=== PATIENT | female | born 1960 | race Caucasian/White ===

== ENCOUNTER 2024-12-20 18:18 | Outpatient (CLI) | payer OTHER, SELFPAY | END 2024-12-20 18:19 | disposition home or self-care (01) | LOC: AMB 12-23 13:34 | PROVIDERS: Visit Provider Emergency Medicine | DX: M25.572 Pain in left ankle and joints of left foot (principal); F10.129 Alcohol abuse with intoxication, unspecified | CPT/HCPCS: A0425; A0427 ==

== ENCOUNTER 2024-12-20 18:44 | Emergency (ER) | payer OTHER, SELFPAY ==
[2024-12-20 18:52] VITALS: BP 138/78; PULSE 66; RESP 18; TEMP 37.1; O2SAT 99
--- NOTE | 2024-12-20 19:21 | CRLHL7_ITS ---
For Patients: As a result of the Century Cures Act, medical imaging exams and procedure reports are released immediately into your electronic medical record. You may view this report before your referring provider. If you have questions, please contact your health care provider. INDICATION: Left-sided foot drop. TECHNIQUE: CT of the head without contrast. Coronal and sagittal reformats are included. COMPARISON: None. FINDINGS: No CT evidence of acute cortical infarct. No loss of huffman white matter differentiation. No hyperdense vessels to suggest intracranial thrombus. No acute intracranial hemorrhage. No mass effect or midline shift. No hydrocephalus or extra-axial collections. White matter is within normal limits for age. No acute osseous abnormalities. Mastoid air cells and paranasal sinuses are clear. Normal soft tissues. IMPRESSION: IMPRESSION:1. No CT evidence of acute cortical infarct. No acute intracranial hemorrhage. No other acute intracranial findings. Please note that all CT scans at this facility use dose modulation, iterative reconstruction, and/or weight-based dosing when appropriate to reduce radiation dose to as low as reasonably achievable. Dictated by Conner Perrin MD @ 12/20/2024 8:11:44 PM (Electronically Signed)
--- NOTE | 2024-12-20 19:21 | CRLHL7_ITS ---
For Patients: As a result of the Century Cures Act, medical imaging exams and procedure reports are released immediately into your electronic medical record. You may view this report before your referring provider. If you have questions, please contact your health care provider. DATE: 12/20/2024 CLINICAL HISTORY: Patient with focal neurological deficits. TECHNIQUE: Standard helical CT image acquisition through the intracranial circulation following intravenous administration of contrast material with bolus tracking. 2D and 3D MIP images for post-processing were performed and interpreted on an independent workstation and 3D images were permanently archived. COMPARISON: CT same day. FINDINGS: There is no cerebral aneurysm or large vessel occlusion. The right internal carotid artery is normal. The right middle cerebral artery and its branches are normal. The right anterior cerebral artery and its branches are normal. The left internal carotid artery is normal. The left middle cerebral artery and its branches are normal. The left anterior cerebral artery and its branches are normal. The anterior communicating artery is well visualized and appears normal. The right vertebral artery and PICA are normal. The left vertebral artery and PICA are normal. The vertebral arteries are codominant. The basilar artery is patent and appears normal. The right posterior cerebral artery is normal. The left posterior cerebral artery is normal. The visualized venous structures are patent. IMPRESSION: Patent proximal intracranial vasculature without intracranial aneurysms. Please note that all CT scans at this facility use dose modulation, iterative reconstruction, and/or weight-based dosing when appropriate to reduce radiation dose to as low as reasonably achievable. Dictated by Ulysses Negro MD @ 12/20/2024 9:43:47 PM (Electronically Signed)
--- NOTE | 2024-12-20 19:21 | CRLHL7_ITS ---
For Patients: As a result of the Century Cures Act, medical imaging exams and procedure reports are released immediately into your electronic medical record. You may view this report before your referring provider. If you have questions, please contact your health care provider. DATE: 12/20/2024 CLINICAL HISTORY: Patient with focal neurological deficits. TECHNIQUE: Standard helical CT image acquisition of the neck up to the skull base after bolus intravenous contrast enhancement. 2D and 3D MIP images for post-processing were performed and interpreted on an independent workstation and 3D images were permanently archived. COMPARISON: CT same day. FINDINGS: The origins of the great vessels from the aortic arch are patent. The origin of the right vertebral artery is patent. The origin of the left vertebral artery is patent. The common carotid arteries are patent. There is no stenosis at the origin of the right internal carotid artery. There is no stenosis at the origin of the left internal carotid artery. The rest of the cervical segments of the internal carotid arteries are patent up to the skull base. The vertebral arteries are codominant. The cervical segments of the vertebral arteries are patent up to the skull base. The visualized lung apices are unremarkable. The thyroid gland is unremarkable. The soft tissues of the neck are unremarkable. There are degenerative changes in the cervical spine. IMPRESSION: Patent cervical vasculature. Please note that all CT scans at this facility use dose modulation, iterative reconstruction, and/or weight-based dosing when appropriate to reduce radiation dose to as low as reasonably achievable. Dictated by Ulysses Negro MD @ 12/20/2024 9:41:47 PM (Electronically Signed)
--- OUTSIDE RECORDS SUMMARY | 2024-12-20 19:24 | XMS_ITS | Clinical Summary ---
Author Organization [facility] Address [address] [place] [id number] Care Team Providers Care Computer Forensic Examiner Name Role Phone Tasha Case DO Primary Care Provider [phone] Allergies Active Allergy Reactions Criticality Noted Date Comments Gluten *Unknown 08/21/2015 Medications estradiol (ESTRACE) 0.1 mg/g vaginal creamIndications :Vaginal dryness Use 2 grams daily for two weeks, then 2 times weekly at 1g 42.5 g 3 01/01/2018 Active CaneIndications: Knee injury, left, sequela Single Point Cane for home use. For 12 weeks. 1 Device 10/23/2018 Active sertraline (ZOLOFT) 100 mg tabletIndication s:Medication refill,Anxiety and depression TAKE 1 AND 1/2 TABLETS BY MOUTH EVERY DAY 135 tablet 04/16/2019 Active levothyroxine (SYNTHROID) 88 mcg tabletIndication s:Hypothyroidism , unspecified type TAKE 1 TABLET BY MOUTH EVERY DAY 30 tablet 01/22/2020 Active Active Problems Problem Noted Date Diagnosed Date Tear of lateral meniscus of left knee, current 0 10/30/2018 Hypothyroidism (acquired) 05/30/2017 Anxiety state, unspecified 01/23/2011 Major depressive disorder, recurrent episode, un specified 03/30/2009 Restless legs syndrome (RLS) 10/27/2006 Resolved Problems Problem Noted Date Diagnosed Date Resolved Date Depressive disorder, not elsewhere classified 10/28/19 07 11/09/2009 Immunizations Immunization Administration Dates Next Due Influenza, IIV3 (Age 6-35 mos) 05/18/2007 Influenza, IIV4 06/29/2018,05/30/2017,04/21/2016 ,03/19/2015 Tdap 03/08/2010,03/16/2007,02/13/2007 Family History Medical History Relation Name Comments Heart Disease Father Other Father dementia Cancer-breast Maternal Aunt 1 great aunt Cancer Maternal Aunt 2 lung Cancer Maternal Aunt 3 ovarian Cancer-ovarian No Family History Relation Name Status Comments Brother 1 Alive Brother 2 Alive Father Alive Maternal Aunt 1 Maternal Aunt 2 Maternal Aunt 3 Mother (Age 59) Sister Alive Social History Tobacco Use Types Packs/Day Years Used Date Smoking Tobacco: Never Smokeless Tobacco: Never Alcohol Use Standard Drinks/Week Comments Yes 0 (1 standard drink = 0.6 oz pur e alcohol) nightly wine PHQ-2 Answer Date Recorded PHQ-2 Score 0 08/18/2018 Comments No Sex and Gender Information Value Date Recorded Sex Assigned at Not on file Legal Sex Female 5:50 AM PODIATRIC ASSISTANT Gender Identity Not on file Sexual Orientation Not on file Obstetrics History Para Term AB IAB SAB Ectopic Multiple Livin g Live Births 1 1 Date Outcome GA Total Labor Labor/2nd/3rd Weight Sex Type Anes PTL Juany A1 A5 Name Clin AB Last Filed Vital Signs Vital Sign Reading Time Taken Comments Blood Pressure 110/64 10/23/2018 9:32 AM CDT Pulse 67 10/23/2018 9:32 AM CDT Temperature 36.6 C (97.9 F) 10/23/2018 9:32 AM CDT Respiratory Rate 18 10/23/2018 9:32 AM CDT Oxygen Saturation 97% 10/23/2018 9:32 AM CDT Inhaled Oxygen Concentration - - Weight 54.5 kg (120 lb 3.2 oz) 05/30/2017 2:17 P M PODIATRIC ASSISTANT Height 155.6 cm (5' 1.25) 05/30/2017 2:17 PM CS T Body Mass Index 22.53 05/30/2017 2:17 PM PODIATRIC ASSISTANT Plan of Treatment Health Maintenance Due Date Last Done Comments HIV for age 15-65 1977 Pneumococcal series for age 50+ (1 of 1 - PCV) 2012 Zoster (shingles) series for age 50+ (1 of 2) 2012 BMI (ht and wt on same day) for age 18+ 05/30/2018 05/30/2017, 08/21/2015 Mammogram for age 45-75 02/02/2019 02/03/20 18, 12/25/2013, 12/25/2013, Additional history exists Depression screening for age 12+ 10/13/2019 10/12/2018, 08/17/2018, 07/20/2018, Additional history exists Tetanus booster 03/08/2020 03/08/2010, 02/18, 02/13/2007 Pap test for age 21-65 05/30/2022 7, 05/30/2017, 12/25/2013, Additional history exists Lipids for age 45-75 07/13/2022 07/13/2017, 12/25/2013, 03/08/2010, Additional history exists COVID-19 vaccine series (2023- season) 2024 Influenza Vaccine (#1) 2025 9, 05/30/2017, 04/21/2016, Additional history exists Colonoscopy through age 75 12/11/2025 12/11/2020, RSV vaccine for adults or (1 - 1-dose 75+ series) 2037 Hepatitis C screening for age 18-79 Completed 04/21/2016 Hepatitis B series for 19+ Aged Out N o longer eligible based on patient's age to complete this topic Procedures Procedure Name Priority Date/Time Associated Diagnosis Comments SCAN-COLONOSCOPY 12/11/2020 7:30 AM CDT XR MAMMO BILAT SCREENING Routine 02/02/2018 1:12 PM CDT Visit for screening mammogram LIPID PANEL W REFLEX MEASURED LDL Routine 07/13/2017 10:13 AM PODIATRIC ASSISTANT Well woman exam with routine gynecological exam FIBERGLASS ROVING WINDER THIN PREP PAP SCREEN IMAGED Routine 05/30/2017 4:15 PM PODIATRIC ASSISTANT Well woman exam with routine gynecological exam ANTI HCV Routine 04/21/2016 10:44 AM CDT Need for hepatitis C screening test from Last 3 Months or Most Recently Relevant to Health Maintenance Results * SCAN-COLONOSCOPY (12/11/2020 7:30 AM CDT) Narrative Procedure Note Boo Aguilar MD - 12/11/2020 6:41 AM CDT [facility] [address], [address], [place] [address] Patient Name: Do Mantilla Gender: Female Exam Date: 12/11/2020 Visit Number: [id number] Age: 60 Years Date of : 1960 Attending MD: Boo Aguilar MD Medical Record#: [id number] Procedure: Colonoscopy Indications: Previous adenomatous polyp(s) Referring MD: Referral Self Primary MD: Natasha Vanessa MD Medications: Admitting Medications: 0.9% Normal Saline at TK Intra Procedure Medications: Patient received monitored anesthesia care. Complications: No immediate complications Procedure: An examination of the heart and lungs was performed and found to be withinacceptable limits. . The patient was therefore deemed a reasonablecandidate for endoscopy and sedation. The risks and benefits of the procedure were explained to the patient.After obtaining informed consent, the patient received monitoredanesthesia care and I passed the scope without difficulty via the rectum to the cecum. The appendiceal orificeand ic valve were identified. The scope was not retroflexed during theexamination The quality of the prep was good (Miralax/Gatorade/2 tabletsBisacodyl/Magnesium Citrate). This was a complete examination throughout the entire colon. Findings: Polyp location: transverse colon. Quantity: 1. Size: 11 mm. Polypshape: sessile. Maneuver: polypectomy was performed with a cold snare. Removal: complete. Retrieval: complete. Bleeding: none. Significantly tortuous. Location - entire colon. Impression: Polyp of colon, unspecified part of colon, unspecified type Preliminary Plan: The patient and their physician will receive a copy of the pathologyreport as well as pathology-based recommendations for future screening orsurveillance. Pathology Results: A: COLON, TRANSVERSE, POLYP: 1. Tubular adenoma consistent with advanced adenoma due to size(see comment) 2. Negative for high grade dysplasia and invasive malignancy 3. Per the colonoscopy report: a. Polyp size: 11-15 mm b. Resection: Complete c. Retrieval: Complete COMMENTS A. Advanced adenoma of the colorectum is defined by the [place] [employer] (ACG) as an adenoma that is 1 cm or more in size,contains an appreciable villous component, or has high grade dysplasia(Kevin JH; Polyp Guideline: Diagnosis, Treatment, and Surveillance forPatients with Colorectal Polyps. Am J [id number];95(11):4355-5948). This polyp qualifies as such. Patients withadvanced adenomas are at increased risk for synchronous and metachronousadditional advanced adenomas. Appropriate follow-up is suggested. MICROSCOPIC A: Performed Electronically signed by: Juventino [place] [address] Orders Instruction(s)/Education: Instruction/Education Timeframe Assessment Colon Polyps K63.5 Final Plan: Repeat colonoscopy in 3 years. We will attempt to contact you at appropriate intervals via U.S. mail. Wemay not be able to find you or contact you at that time, therefore youshould know that the responsibility for following our recommendation restswith you. If you don't hear from us at the time your procedure is due,please contact our office to schedule an appointment. If your contactinformation should change, please contact our office so that we can updateyour record. _Electronically signed by: Boo Aguilar MD 12/11/2020 cc: Natasha Vanessa MD cc: Referral Self us Boo Aguilar MD OTHER Final Resul t * XR MAMMO BILAT SCREENING (02/02/2018 1:12 PM CDT) Anatomical Region Laterality Modality BREASTS, Breast Left, Breast Right Bilateral Mammography Impressions 02/05/2018 9:26 AM CDT There is no radiographic evidence for malignancy. Recommend annual mammograms. A lay language report of this examination will be provided to the patient. MAMMOGRAM ASSESSMENT: ACR 1 Negative Narrative 02/05/2018 9:26 AM CDT XR MAMMO BILAT SCREENING [[id number]] CLINICAL HISTORY: This is an asymptomatic 57 y.o. patient. INDICATION FOR EXAM: Mammogram Screening. TECHNIQUE: CC & MLO views were obtained. This digital study was evaluated with the assistance of Computer-Aided Detection. COMPARISON FILM: Yes 12/25/13 [facility] 03/08/10 [facility] FINDINGS: Mammographically, the breast tissue is heterogeneously dense, which could obscure detection of small masses. There are no dominant masses, suspicious micro calcifications or areas of architectural distortion. Tasha Marquezjoce DO MAMMO Final Res ult * (ABNORMAL) LIPID PANEL W REFLEX MEASURED LDL (07/13/2017 10:13 AM PODIATRIC ASSISTANT) CHOLESTEROL,TOTAL 294(H) 100 - 199 mg/dL 07/13/2017 3:56 PM PODIATRIC ASSISTANT [facility] TRIGLYCERIDES 62 <150 mg/dL 07/13/2017 3:56 PM [facility] HDL CHOLESTEROL 124 >40 mg/dL 8 3:56 PM PODIATRIC ASSISTANT [facility] NON-HDL CHOLESTEROL 170(H) <145 mg/dl 07/13/2017 3:56 PM PODIATRIC ASSISTANT [facility] CHOL/HDL RATIO 2.37 <4.50 07/13/2017 3:56 PM [facility] LDL CHOLESTEROL 158(H) <=130 mg/dL 07/13/2017 3:56 PM [facility] PROVIDER ORDERED STATUS RANDOM 07/13/2017 3:56 PM [facility] Blood BLOOD SPECIMEN / Unknown Venipuncture / Unknown 07/13/2017 10:13 AM PODIATRIC ASSISTANT 07/13/2017 10:13 AM PODIATRIC ASSISTANT Tasha Case DO CHEMISTRY Final Res ult [facility] [address] [place] [address], [place] * FIBERGLASS ROVING WINDER THIN PREP PAP SCREEN IMAGED (05/30/2017 4:15 PM PODIATRIC ASSISTANT) Case Report Gynecologic Cytology Report Case: [id number] Authorizing Provider: Tasha Case DO Collected: 05/30/2017 1615 Ordering Location: [facility] Received: 05/30/2017 [facility] First Screen: Radha Villalobos Specimen: FIBERGLASS ROVING WINDER ThinPrep Vial Screening, Cervical 06/10/2017 8:56 AM PODIATRIC ASSISTANT [facility] INTERPRETATION/ RESULT NEGATIVE FOR INTRAEPITHELIAL LESION OR MALIGNANCY (NIL) (none) 06/10/2017 8:56 AM PODIATRIC ASSISTANT [facility] at 0856 PODIATRIC ASSISTANT SPECIMEN ADEQUACY Satisfactory for evaluation Endocervical cells cannot be evaluated due to severe atrophy 06/10/2017 8:56 AM PODIATRIC ASSISTANT [facility] HPV REQUEST HPV and PAP 06/10/2017 8:56 AM PODIATRIC ASSISTANT [facility] Date of LMP 01/10/2011 06/10/2017 8:56 AM PODIATRIC ASSISTANT [facility] Last Pap Date 12/25/2013 06/10/2017 8:56 AM PODIATRIC ASSISTANT [facility] Last Pap Result NIL 7 8:56 AM PODIATRIC ASSISTANT [facility] Abnormal Pap or Brimson Bx in last 5 years No 06/10/2017 8:56 AM PODIATRIC ASSISTANT [facility] Menstrual Status Postmenopausal 06/10/2017 8:56 AM PODIATRIC ASSISTANT [employer] [facility] Brimson Bx Done Today No 06/10/2017 8:56 AM PODIATRIC ASSISTANT [facility] Additional Information None given 06/10/2017 8:56 AM PODIATRIC ASSISTANT [facility] Automated Review Successful 06/10/2017 8:56 AM PODIATRIC ASSISTANT [facility] Comment:Specimen processed s uccessfully by automated ordnance artificer helper device, ThinPrep Imaging System, [employer] ANCILLARY TESTING FIBERGLASS ROVING WINDER HPV Ordered, Please see separate report 06/10/2017 8:56 AM PODIATRIC ASSISTANT [employer] Note The pap test is a screening technique, not a diagnostic procedure. It is used primarily to screen for squamous cancers and precursor lesions. Published studies have shown that it is subject to both false negative and false positive results. The pap test should not be used as the sole means to diagnose or exclude pre-malignant and malignant lesions. Interpreted at [facility], [facility], [facility], [facility], [facility], [facility], [facility]) 06/10/2017 8:56 AM PODIATRIC ASSISTANT [facility] Other (Cervical) 05/30/2017 4:15 PM PODIATRIC ASSISTANT 05/30/2017 4:15 PM PODIATRIC ASSISTANT us Tasha Case DO PATHOLOGY/CYTOLOGY Final Result Performing Organization Address City/[facility]/ZIP Co de Phone Number [facility] [address] [place] [address], * ANTI HCV (04/21/2016 10:44 AM CDT) HEPATITIS C ANTIBODY Non-Reacti ve Non-Reacti ve 04/21/2016 7:17 PM CDT [facility] Blood BLOOD SPECIMEN / Unknown Venipuncture / Unknown 04/21/2016 10:44 AM CDT 04/21/2016 10:44 AM CDT Narrative [facility] - 04/21/2016 7:17 PM CDT Antibodies to HCV not detected; does not exclude the possibility of exposure to HCV. us Gemma Lee MD SEND OUTS Final Result [facility] [address] [place] [address], from Last 3 Months or Most Recently Relevant to Health Maintenance Insurance [facility] Care Teams Computer Forensic Examiner Relationship Specialty Start Date End Date Tasha Case DO [address] [place] [address] PCP - General Family Practice 01/01/18
--- OUTSIDE RECORDS SUMMARY | 2024-12-20 19:25 | XMS_ITS | Patient Health Record ---
Author Organization [facility] S Address [address] [id number] Care Team Providers Care Director Hedis Name Role Phone Lana Holt Primary Care Provider judyTasha Cortes Unavailable [phone] Allergies No Known Allergies Results Component Value Reference Range Notes Mammogram : Screening Bilat Reviewed date:11/14/2024 04:25:10 PM Interpretation:Negative Performing Lab: Notes/Report: Original Report EXAM: FULL-FIELD DIGITAL BILATERAL SCREENING TOMOSYNTHESIS (3D) MAMMOGRAPHY WITH CAD CLINICAL INFORMATION: Screening. The patient reports no palpable abnormalities or other breast concern. TECHNICAL INFORMATION: Bilateral craniocaudal and mediolateral oblique full-field digital bilateral screening tomosynthesis (3D) exam with synthetic 2D views. CAD was applied. COMPARISON: Mammograms dated 05/19/2023, 04/28/2022, 03/12/2021 Total Lifetime Breast Cancer Risk assessment (TLR): 5.62%, Average Risk Category (<15%) based on information provided by the patient and mammographic breast density utilizing Tyrer-Cuzick breast cancer risk assessment model. BREAST COMPOSITION: The breasts are heterogeneously dense, which may obscure small masses. INTERPRETATION: No mammographic evidence for malignancy in either breast. CONCLUSION: BI-RADS 1. Negative. RECOMMENDATION: Annual screening mammography. The appropriate information has been entered into a reminder system with a targeted due date for the next mammogram. [facility] sent letter to patient regarding results. Read by: Dr. JENNIFER CORNEJO M.D. Reviewed and Electronically Signed by: Dr. JENNIFER CORNEJO M.D. [facility] - [place]:[address] [address] Lipid [place] Reviewed date:05/13/2024 01:52:55 PM Interpretation:LDL 144, HDL 147, TG 73, TC 306 Performing Lab: Notes/Report: Cholesterol Desirable: < 200 mg/dL Borderline High: 200 - 239 mg/dL High: >= 240 mg/dL Triglycerides Normal: < 150 mg/dL Borderline High: 150 - 199 mg/dL High: 200-499 mg/dL Very High: >= 500 mg/dL Direct Measure HDL Female: >= 50 mg/dL Male: >= 40 mg/dL LDL Cholesterol Desirable: < 100 mg/dL Above Desirable: 100 - 129 mg/dL Borderline High: 130 - 159 mg/dL High: 160 - 189 mg/dL Very High: >= 190 mg/dL Non HDL Cholesterol Desirable: < 130 mg/dL Above Desirable: 130 - 159 mg/dL Borderline High: 160 - 189 mg/dL High: 190 - 219 mg/dL Very High: >= 220 mg/dL PERFORMED BY: [facility], [place] [id number] [place] [id number],[facility] [id number] . Cholesterol 306 <200 mg/dL Triglycerides 73 <150 mg/dL Direct Measure HDL 147 >=50 mg/dL LDL Cholesterol Calculated 144 <100 mg/dL Non HDL Cholesterol 159 <130 mg/dL Patient Fasting > 8hrs? Unknown Comprehensive Metabolic Reviewed date:05/13/2024 01:51:51 PM Interpretation:Cr 0.72, gfr >90 Performing Lab: Notes/Report: Sodium 139 135-145 mmol/L Potassium 3.6 3.4-5.3 mmol/L Carbon Dioxide (CO2) 22 22-29 mmol/L Anion Gap 14 7-15 mmol/L Urea Nitrogen 12.5 8.0-23.0 mg/dL Creatinine 0.72 0.51-0.95 mg/dL GFR Estimate >90 >60 mL/min/1.73m2 eGFR calcu lated using 2020 CKD-EPI equation. Calcium 9.2 8.8-10.4 mg/dL Reference int ervals for this test were updated on 01/02/2024 to reflect our healthy population more accurately. There may be differences in the flagging of prior results with similar values performed with this method. Those prior results can be interpreted in the context of the updated reference intervals. Chloride 103 98-107 mmol/L Glucose 82 70-99 mg/dL Alkaline Phosphatase 44 40-150 U/L AST 31 0-45 U/L ALT 30 0-50 U/L Protein Total 6.8 6.4-8.3 g/dL Albumin 4.5 3.5-5.2 g/dL Bilirubin Total 0.3 <=1.2 mg/dL PERFORMED BY: [facility], [address] [id number],[facility] [id number] . Patient Fasting > 8hrs? Unknown TSH Reviewed date:05/13/2024 01:52:01 PM Interpretation:2.41 Performing Lab: Notes/Report: TSH 2.41 0.30-4.20 uIU/mL PERFORMED BY: [facility], [address] [id number],[facility] [id number] . Colonoscopy Reviewed date:01/15/2024 01:52:01 PM Interpretation:repeat in 5 years Performing Lab: Notes/Report: repeat in 5 years Reason For Referral Reason dexa Diagnosis 1 History of menopause (Z78.0) Referral Organization [facility] Referring Provider First Name Tasha Referring Provider Last Name Cecelia Referring Provider Speciality [employer] Notes Nadia Kennedy 04/20 01:00:28 PM >Do will call back in September as she will be out of town until then. Referral Priority Routine Medications Medication SIG (Take, Route, Frequency, Duration) Notes Start Date End Date Status Sertraline HCl 100 MG 2 tablet Orally On ce a day; Duration: 90 days Active Levothyroxine Sodium 88 MCG TAKE 1 TABLE T BY MOUTH EVERY DAY; Duration: 90 days Active Immunizations Vaccine Route Administration Date Status Comme nts Covid Vaccine (Pfizer) Unknown 10/10/2020 Administered Covid Vaccine (Pfizer) Unknown 10/29/2020 Administered Covid Vaccine Bivalent Booster (Moderna) Unknown 03/31/2022 Administered Covid Vaccine Booster (Moderna) Unknown 11/04/2021 Administered Covid-19 (Spikevax-MOD 23-24) Unknown 03/15/2024 Administered Influenza Trivalent Unknown 03/15/2024 Administered Tdap (Boostrix 7 years & older ) Unknown 03/16/2007 Administered Tdap (Boostrix 7 years & older ) Unknown 03/08/2010 Administered Tdap (Boostrix 7 years & older ) IM Intramuscular 06/07/2022 Administered Zoster Vaccine (Shingrix) Unknown 11/04/2021 Administer ed Zoster Vaccine (Shingrix) Unknown 01/11/2022 Administer ed Social History Tobacco Use: Social History Observation Description Date Details (start date - stop date) Never Smoker NA - NA Sex Assigned At : Social History Observation Description Sex Assigned At Female Tobacco Control (Standard) Question Answer Notes Tobacco use: Nonsmoker Problems Problem Type SNOMED Code ICD Code Onset Dates Problem Status W/U Status Risk Notes Problem Mixed hyperlipidemia (613551960) Mixed hyperlipidemia (E78.2) Active confirmed Problem Acquired hypothyroidism (796168109) Acquired hypothyroidism (E03.9) Active confirmed Problem Atrophic vaginitis (72159011) Atrophic vaginitis (N95.2) Active confirmed Problem Generalized anxiety disorder (94292898) KEKE (generalized anxiety disorder) (F41.1) Active confirmed Problem Single episode of major depression in full remission (50334213) Major depressive disorder with single episode, in full remission (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) Active confirmed Vital Signs Blood pressure diastolic 68 mm Hg 05/08/2024 Height 61.5 in 05/08/2024 Blood pressure systolic 108 mm Hg 05/08/2024 Weight 115 lbs 05/08/2024 BMI 21.37 kg/m2 05/08/2024 Encounters Encounter Location Date Provider Diagnosis [facility] [address] [place], [place] [id number] 05/08/2024 Tasha Rai Acquired hypothyroidism E03.9 ; Major depressive disorder with single episode, in full remission F32.5 ; Mixed hyperlipidemia E78.2 and History of menopause Z78.0 Assessments Encounter Date Diagnosis (ICD Code) Assessment Notes Treatment Notes Treatment Clinical Notes Section Notes 05/08/2024 Acquired hypothyroidism (ICD-10 - E03.9) Assessment and Plan: 1. Acquired hyperthyroidism - Patient reports no side effects or problems with levothyroxine - No symptoms of fatigue, dry skin, sluggishness, depression, palpitations, or racing heart - Continue current levothyroxine regimen - Recheck TSH with upcoming labs - Refill levothyroxine for one year 2. Major depression - Patient's mood is stable on sertraline, taking two a day - No issues with panic, anxiety, or sleep - Mild stomach upset reported as a side effect - Continue current sertraline regimen - Refill sertraline for one year 3. Elevated cholesterol - Last LDL was 133 in 2022 - Recheck lipid panel with upcoming labs 4. History of anorexia - Patient's weight is stable, prefers not to discuss numbers - Bone density test recommended before age 65 - Schedule bone density test at [facility] after returning from [place] in the spring 5. Preventive care - Mammogram due after returning from [place] in the spring - Colonoscopy completed earlier this year, next due in five years - Up to date on COVID and flu shots as of March 15 05/08/2024 Major depressive disorder with single episode, in full remission (ICD-10 - F32.5) 05/08/2024 Mixed hyperlipidemia (ICD-10 - E78.2) 05/08/2024 History of menopause (ICD-10 - Z78.0) Plan Of Treatment No Information Insurance Providers Payer Name Payer Address Payer Phone Subscriber Number Group Number Insured Name Patient Relationship to Insured Coverage Start Date Coverage End Date [employer] E[employer]IVE 2019 [place] [id number] Do Mantilla Self - patient is the insured 1
--- NOTE | 2024-12-20 20:08 | ED_ITS ---
HPI - General Adult General Date Seen: 12/20/24 Chief complaint: Extremity Pain/Injury, Lower Stated complaint: ankle injury (L) Time Seen by Provider: 12/20/24 18:54 History of Present Illness HPI narrative: Patient is a 64-year-old woman without reported significant health history who presents saying she is having difficulty walking today because of stiffness in her left ankle. She says she ?can not move it. She attributes this to a sprain that she sustained 25 years ago. She and her have been out and about today, drinking at the [facility] and shopping, celebrating the 20 of December. EMS had been called for her as he had had a fainting episode at the [facility], and while there, she apparently reported these symptoms and was brought in as possible stroke or sprained ankle. She reports having trouble with the foot throughout the day today, difficulty walking and trouble with tripping due to inability to lift her foot properly. She denies any back pain or radiating pain, she has not had numbness or loss of function otherwise, and has not had any other neurologic symptoms. No headache or vomiting. Trauma. Related Data Allergies Allergy/AdvReac Type Severity Reaction Status Date / Time No Known Drug Allergies Allergy Verified 12/20/24 20:16 Review of Systems Status of ROS: Reports: 6 or more systems reviewed and unremarkable except as noted in History and below Exam Narrative: Exam Narrative: Vital signs reviewed In general, alert, nontoxic mid age woman. Head: Normocephalic, atraumatic. Eyes: Sclera clear. Pupils equal and reactive. ENT: Mucous membranes moist. Neck: Supple without adenopathy. Heart: Regular rate and rhythm without murmur. Lungs: Clear. No increased work of breathing, crackles or wheezes. Abdomen: Soft, nontender to palpation. Extremities: Well perfused, pulses intact. No significant edema. Neurologic: Alert, conversant. Speech fluent, face symmetric. She has 5 of 5 strength in upper and lower extremities with the exception of dorsiflexion of her left foot. She is not able to dorsiflex against resistance, she has partial dorsiflexion without resistance. Her gait is slightly antalgic as she is compensating for her foot drop. Sensation is intact to light touch in bilateral lower extremities. Skin: Warm, dry well perfused. Affect: Normal. Const: Vital Signs, click to edit/add: Vital Signs - 24 hr 12/20/24 18:52 Temperature 98.7 F Pulse Rate [Left P ulse Oximeter] 66 Respiratory Rate 18 Blood Pressure [Ri ght Upper Arm] 138/78 Pulse Oximetry 99 Oxygen Delivery Me thod Room Air Course Course ED Course: Patient presents with isolated, nonpainful footdrop this started sometime this morning or possibly last night. No radicular symptoms to suggest this is likely lumbar in etiology. Neurologic exam is otherwise nonfocal. I did discuss her case with neurology on-call, she felt that be reasonable to get a CT scan just to rule out anything obvious or large vessel. Barring that, she recommended o utpatient follow-up with primary care to get an MRI of the brain and L-spine. This is likely peripheral rather than central in etiology given health focal it is, but at this time a central etiology has not been entirely ruled out. She will need to follow up with Neurology after imaging, this can be arranged through her primary care doctor. She does get her medical care in [place] where she lives. I reviewed the CT scan of her head, I do not see any hemorrhage or mass effect. Radiology reads this is negative for any acute findings. CTA of the head is read as no emergent large vessel occlusion or high-grade intracranial arterial stenosis. CTA of the neck is read as no flow limiting stenosis or evidence of dissection. These are preliminary reads. She is eager to go. Reviewed that she will need additional follow-up to evaluate this. For evolving or worsening symptoms she should be seen again more emergently. Vital Signs Vital signs: Initial Vital Signs Temperature 98.7 F 12/20/24 18:52 Temperature Source Temporal Artery Scan 12/20/24 18:52 Pulse Rate 66 12/20/24 18:52 Pulse Rhythm Regular 12/20/24 18:52 Respiratory Rate 18 12/20/24 18:52 Blood Pressure 138/78 12/20/24 18:52 Blood Pressure Mean 98 12/20/24 18:52 Pulse Oximetry 99 12/20/24 18:52 Oxygen Delivery Method Room Air 12/20/24 18:52 Vital Signs Temperature 98.7 F 12/20/24 18:52 Pulse Rate 66 12/20/24 18:52 Respiratory Rate 18 12/20/24 18:52 Blood Pressure 138/78 12/20/24 18:52 Pulse Oximetry 99 12/20/24 18:52 Oxygen Delivery Method Room Air 12/20/24 18:52 Temperature 98.7 F 12/20/24 18:52 Pulse Rate 66 12/20/24 18:52 Respiratory Rate 18 12/20/24 18:52 Blood Pressure 138/78 12/20/24 18:52 Pulse Oximetry 99 12/20/24 18:52 Oxygen Delivery Method Room Air 12/20/24 18:52 Medical Decision Making Imaging Data CT scan - head: Attestation: I have reviewed the pertinent imaging results. Radiologist's impression: Patient: Remigio Mantilla MR#: [id number] : 1960 Acct:[id number] Loc: ED Service Date: 12/20/[address]: Ordering Physician: Leida Segura M.D. Date of Service: 12/20/24 Procedure(s): CT head/brain wo con Accession Number(s): [id number] cc: Leida Segura M.D.; Provider,Not a Local~ For Patients: As a result of the Cures Act, medical imaging exams and procedure reports are released immediately into your electronic medical record. You may view this report before your referring provider. If you have questions, please contact your health care provider. INDICATION: Left-sided foot drop. TECHNIQUE: CT of the head without contrast. Coronal and sagittal reformats are included. COMPARISON: None. FINDINGS: No CT evidence of acute cortical infarct. No loss of huffman white matter differentiation. No hyperdense vessels to suggest intracranial thrombus. No acute intracranial hemorrhage. No mass effect or midline shift. No hydrocephalus or extra-axial collections. White matter is within normal limits for age. No acute osseous abnormalities. Mastoid air cells and paranasal sinuses are clear. Normal soft tissues. IMPRESSION: IMPRESSION:1. No CT evidence of acute cortical infarct. No acute intracranial hemorrhage. No other acute intracranial findings. Preliminary Report Patient: REMIGIO MANTILLA Facility: [facility] . Site : 1960 Study: CT-Head Angio 95CC ISOVUE 370 NON ACUTE-12/20/2024 8:05:34 PM Ordering Physician: Imelda Casarez Preliminary Report: CTA head: No emergent large vessel occlusion or high-grade intracranial arterial stenosis. CTA neck: No flow-limiting stenosis. No evidence of dissection. Read by: Conner Perrin MD @12/20/2024 8:22:37 PM Discharge Plan Discharge Clinical Impression: Foot drop, left Patient Disposition: Home, Self-Care Condition: Stable Instructions: Foot Drop (ED) Additional Instructions: Your diagnosis tonight is of a footdrop. This can have many different causes, and the cause of your foot drop is not clear at this time. The CT scan of your head and the arterial imaging of your head and neck do not show any abnormalities. You will need additional evaluation as an outpatient. The neurologist I spoke to tuloi recommended that you follow-up with your primary care doctor as well as make a follow-up appointment with Neurology as an outpatient. One option is the [facility]. Your primary doctor can order outpatient imaging for you to include an MRI of the brain and the lumbar spine, that way when you see the neurologist these imaging tests will have already been done. If your symptoms are progressively worsening or if you have new neurologic changes, you should be seen in the emergency department for re- evaluation. Follow Up/Referrals: Provider,Not a Local [Primary Care Provider, Family Practice] Stand Alone Forms: [employer] Info Instructions
== END 2024-12-20 20:33 | disposition home or self-care (01) ==
PROVIDERS: Emergency Provider Emergency Medicine
DX: M21.372 Foot drop, left foot (principal)
CPT/HCPCS: 70450; 70496; 70498; 99284; 99285; Q9967